=== PATIENT | male | born 1960 | race Caucasian/White ===

== ENCOUNTER 2017-11-12 15:34 | Emergency (ER) | payer BC, OTHER ==
[~2017-11-12] VITALS: Ht 177.8 cm; Wt 67.2 kg
[2017-11-12 15:40] VITALS: BP 161/88
[2017-11-12] MEDS ORDERED: KETOROLAC 30 MG/1 ML IM ONE (16:00)
[2017-11-12] MEDS ORDERED: KETOROLAC 30 MG/1 ML ONE (16:19)
[2017-11-12] MEDS ORDERED: DIAZEPAM 5 MG TABLET PO ONE (17:00)
[2017-11-12] MEDS ORDERED: DIAZEPAM 5 MG TABLET ONE (17:30)
== END 2017-11-12 19:19 | disposition home or self-care (01) ==
LOC: ED 18:55
DX: S06.0X0A Concussion without loss of consciousness, initial encounter (principal); S39.012A Strain of muscle, fascia and tendon of lower back, initial encounter; S16.1XXA Strain of muscle, fascia and tendon at neck level, initial encounter; G89.11 Acute pain due to trauma; V89.2XXA Person injured in unspecified motor-vehicle accident, traffic, initial encounter; Y93.89 Activity, other specified; Y92.410 Unspecified street and highway as the place of occurrence of the external cause; Y99.8 Other external cause status
CPT/HCPCS: 70450; 72072; 72110; 72125; 72128; 73030; 96372; 99284; J1885

== ENCOUNTER 2018-02-19 12:06 | Inpatient (IN) | payer OTHER ==
[~2018-02-19] VITALS: Ht 175.3 cm; Wt 61.0 kg
[2018-02-19 12:56] LABS: BASOPHILS # (AUTO) 0.05 x10^3/uL (0-0.1); BASOPHILS % (AUTO) 1 % (0-1); EOSINOPHILS % (AUTO) 0 % (1-7); LYMPHOCYTES # (AUTO) 0.89 x10^3/uL (1-3.4); LYMPHOCYTES % (AUTO) 14 % (22-44); MD NO; MEAN CORPUSCULAR HEMOGLOBIN 34.5 pg (27.5-34.5); MEAN CORPUSCULAR HGB CONC 34.4 g/dL (33.2-36.2); MEAN CORPUSCULAR VOLUME 100.3 fL (81-97); MEAN PLATELET VOLUME 7.4 fL (7.4-10.4); MONOCYTES # (AUTO) 0.35 x10^3/uL (0.2-0.8); MONOCYTES % (AUTO) 5 % (2-9); NEUTROPHILS % (AUTO) 80 % (42-75); PLATELET COUNT 167 x10^3/uL (130-400); RED BLOOD COUNT 4.39 x10^6/uL (4.38-5.82); RED CELL DISTRIBUTION WIDTH 12.8 % (9.4-14.8)
[2018-02-19] MEDS ORDERED: SODIUM CHLORIDE 0.9% 1,000ML IVBOLUS ONE (13:00)
[2018-02-19] MEDS ORDERED: SODIUM CHLORIDE FLUSH 10ML SYR IVF ONE (13:00)
[2018-02-19 13:06] LABS: ALBUMIN 3.8 g/dL (3.4-5.0); ANION GAP 17 mmol/L (5-15); CALCIUM 7.9 mg/dL (8.5-10.1); CHLORIDE 104 mmol/L (98-107)
[2018-02-19 13:13] LABS: ALANINE AMINOTRANSFERASE 147 U/L (12-78); ALKALINE PHOSPHATASE 93 U/L (45-117); CREATININE 0.82 mg/dL (0.7-1.3); TOTAL PROTEIN 7.3 g/dL (6.4-8.2); TROPONIN I < 0.015 ng/mL (0.000-0.045)
[2018-02-19 13:18] LABS: THYROID STIMULATING HORMONE 0.491 mIU/L (0.358-3.740)
[2018-02-19 13:24] LABS: D-DIMER 2.71 ug/mlFEU (0.00-0.52); INTERNATIONAL NORMALIZED RATIO 0.95 (0.93-1.1); PROTHROMBIN TIME 9.9 Seconds (9.6-11.5)
[2018-02-19] MEDS ORDERED: OMNIPAQUE 350 MG/ML, 100ML BOTTLE ONE (14:04)
[2018-02-19] MEDS ORDERED: ACETAMINOPHEN 650 MG/20.3 ML UDC PO PRN (15:30)
[2018-02-19] MEDS ORDERED: NITROGLYCERIN SINGLE TAB 0.4 MG SL PRN (15:30)
[2018-02-19] MEDS ORDERED: ASPIRIN 325 MG TABLET EC PO ONE (15:30)
[2018-02-19] MEDS ORDERED: LORazepam 2 MG/ML, 1ML IVPush PRN (15:30)
[2018-02-19] MEDS ORDERED: NITROGLYCERIN 0.4 MG/SPRAY SL PRN (15:30)
[2018-02-19] MEDS ORDERED: ONDANSETRON 2MG/ML, 2ML IVP PRN (15:30)
[2018-02-19] MEDS: LIDODERM 5% PATCH TD SCH (15:30)
[2018-02-19] MEDS ORDERED: NITROGLYCERIN 0.4 MG BOTTLE (25 TABS) SL PRN (15:30)
[2018-02-19] MEDS ORDERED: morphine SULFATE 10 MG/ML, 1ML IV PRN (15:30)
[2018-02-19] MEDS ORDERED: ENALAPRILAT 1.25 MG/ML, 2ML IV PRN (15:30)
[2018-02-19] MEDS ORDERED: MAALOX/HYOSCYAMINE/LIDOCAINE 45 ML BTL PO PRN (15:30)
[2018-02-19 15:54] LABS: FOLATE LEVEL 10.8 ng/mL (3.1-17.5)
[2018-02-19] MEDS ORDERED: KETOROLAC 30 MG/1 ML IVPush PRN (16:00)
[2018-02-19 16:07] LABS: HEMOGLOBIN A1C 5.4 % (4.2-6.3)
[2018-02-19 16:47] VITALS: BP 131/75
[2018-02-19] MEDS: LACTATED RINGERS 1,000 ML IV SCH (17:24)
[2018-02-19] MEDS: PANTOPRAZOLE 40 MG IV IVPush SCH (17:40)
[2018-02-19] MEDS: ENOXAPARIN 40 MG/0.4 ML SQ SCH (17:40)
[2018-02-19] MEDS: POTASSIUM CHLORIDE 20 MEQ TAB.ER.PRT PO SCH (17:40)
[2018-02-19] MEDS: METHOCARBAMOL 500 MG TABLET PO SCH ×2 (17:41→20:19)
[2018-02-19 19:35] VITALS: BP 145/79
[2018-02-19 19:40] LABS: TROPONIN I < 0.015 ng/mL (0.000-0.045)
[2018-02-19] MEDS: SODIUM CHLORIDE FLUSH 10ML SYR IVF SCH (20:20)
[2018-02-19 22:52] LABS: MICROSCOPIC NOT IND
[2018-02-19 22:58] LABS: CULTURE INDICATED? NO
[2018-02-20] MEDS: ZOLPIDEM 5MG TABLET PO PRN ×2 (00:35→21:27)
[2018-02-20] MEDS: LACTATED RINGERS 1,000 ML IV SCH ×2 (00:35→07:40)
[2018-02-20 00:36] VITALS: BP 147/72
[2018-02-20 01:21] LABS: CHOL/HDL RATIO 1.9; LDL/HDL RATIO 0.7 (0.5-3.0); TROPONIN I < 0.015 ng/mL (0.000-0.045)
[2018-02-20] MEDS: METHOCARBAMOL 500 MG TABLET PO SCH ×4 (05:50→21:27)
[2018-02-20] MEDS: PANTOPRAZOLE 40 MG IV IVPush SCH ×2 (05:50→18:44)
[2018-02-20] MEDS ORDERED: ASPIRIN 325 MG TABLET EC PO SCH (06:00)
[2018-02-20] MEDS: POTASSIUM CHLORIDE 20 MEQ TAB.ER.PRT PO SCH (07:41)
[2018-02-20] MEDS: SODIUM CHLORIDE FLUSH 10ML SYR IVF SCH ×2 (07:41→21:27)
[2018-02-20] MEDS: TAMSULOSIN 0.4 MG CAP.ER.24H PO SCH (07:41)
[2018-02-20 08:00] VITALS: BP 162/90
[2018-02-20] MEDS ORDERED: LORazepam 1MG TABLET PO PRN ×3 (10:00)
[2018-02-20] MEDS ORDERED: LORazepam 2 MG/ML, 1ML IV PRN ×4 (10:00)
[2018-02-20] MEDS ORDERED: REGADENOSON 0.4 MG/5 ML SYRINGE ONE (10:20)
[2018-02-20 12:11] LABS: MEAN CORPUSCULAR HGB CONC 33.7 g/dL (33.2-36.2); MEAN CORPUSCULAR VOLUME 100.8 fL (81-97); MEAN PLATELET VOLUME 7.3 fL (7.4-10.4); PLATELET COUNT 140 x10^3/uL (130-400); RED BLOOD COUNT 4.13 x10^6/uL (4.38-5.82); RED CELL DISTRIBUTION WIDTH 12.9 % (9.4-14.8)
[2018-02-20 12:18] LABS: ALANINE AMINOTRANSFERASE 106 U/L (12-78); ALBUMIN 3.6 g/dL (3.4-5.0); ANION GAP 11 mmol/L (5-15); CALCIUM 8.2 mg/dL (8.5-10.1); CHLORIDE 97 mmol/L (98-107); CREATININE 0.71 mg/dL (0.7-1.3)
[2018-02-20 12:20] LABS: ALKALINE PHOSPHATASE 88 U/L (45-117); BILIRUBIN,TOTAL 1.9 mg/dL (0.2-1.0); TOTAL PROTEIN 6.8 g/dL (6.4-8.2)
[2018-02-20 12:28] LABS: BASOPHILS % (AUTO) 0 % (0-1); EOSINOPHILS # (AUTO) 0.01 x10^3/uL (0-0.4); EOSINOPHILS % (AUTO) 0 % (1-7); LYMPHOCYTES # (AUTO) 0.42 x10^3/uL (1-3.4); LYMPHOCYTES % (AUTO) 8 % (22-44); MD SCAN; MONOCYTES # (AUTO) 0.44 x10^3/uL (0.2-0.8); MONOCYTES % (AUTO) 9 % (2-9); NEUTROPHILS # (AUTO) 4.25 x10^3/uL (1.8-6.8); NEUTROPHILS % (AUTO) 83 % (42-75)
[2018-02-20] MEDS ORDERED: OMNIPAQUE 350 MG/ML, 100ML BOTTLE ONE (12:46)
[2018-02-20] MEDS: MULTIVIT.W/IRON, MINERALS ORAL SOL PO SCH (13:04)
[2018-02-20] MEDS: THIAMINE 100MG TABLET PO SCH (13:04)
[2018-02-20] MEDS: FOLIC ACID 1 MG TABLET PO SCH (13:05)
[2018-02-20] MEDS ORDERED: MAGNESIUM SULFATE PMX 2GM/50ML 50 ML IV ONE (13:30)
[2018-02-20 13:47] VITALS: BP 126/74
[2018-02-20] MEDS: SODIUM CHLORIDE 0.9% 1,000 ML IV SCH ×2 (14:29→23:50)
[2018-02-20] MEDS: LIDODERM 5% PATCH TD SCH (15:30)
[2018-02-20] MEDS: ENOXAPARIN 40 MG/0.4 ML SQ SCH (16:04)
[2018-02-20 16:45] VITALS: BP 145/82
[2018-02-20 19:07] VITALS: BP 162/88
[2018-02-21 01:39] VITALS: BP 115/74
[2018-02-21] MEDS: METHOCARBAMOL 500 MG TABLET PO SCH ×4 (05:47→20:50)
[2018-02-21] MEDS: PANTOPRAZOLE 40 MG IV IVPush SCH (05:47)
[2018-02-21] MEDS: SODIUM CHLORIDE 0.9% 1,000 ML IV SCH ×2 (08:33→19:42)
[2018-02-21] MEDS: SODIUM CHLORIDE FLUSH 10ML SYR IVF SCH ×2 (08:34→20:51)
[2018-02-21 08:36] VITALS: BP 138/85
[2018-02-21] MEDS: MULTIVIT.W/IRON, MINERALS ORAL SOL PO SCH (08:42)
[2018-02-21] MEDS: THIAMINE 100MG TABLET PO SCH (08:45)
[2018-02-21] MEDS: TAMSULOSIN 0.4 MG CAP.ER.24H PO SCH (08:45)
[2018-02-21] MEDS: FOLIC ACID 1 MG TABLET PO SCH (08:45)
[2018-02-21] MEDS ORDERED: CALCIUM CARBONATE 500 MG/5 ML PO SCH (09:00)
[2018-02-21] MEDS: CALCIUM CARBONATE 500 MG TAB.CHEW PO SCH (10:18)
[2018-02-21] MEDS: LORazepam 0.5MG TABLET PO PRN ×2 (10:18→20:50)
[2018-02-21 12:17] LABS: BASOPHILS # (AUTO) 0.02 x10^3/uL (0-0.1); BASOPHILS % (AUTO) 1 % (0-1); EOSINOPHILS # (AUTO) 0.04 x10^3/uL (0-0.4); EOSINOPHILS % (AUTO) 1 % (1-7); LYMPHOCYTES # (AUTO) 0.59 x10^3/uL (1-3.4); LYMPHOCYTES % (AUTO) 13 % (22-44); MD NO; MEAN CORPUSCULAR HEMOGLOBIN 34.2 pg (27.5-34.5); MEAN CORPUSCULAR HGB CONC 33.9 g/dL (33.2-36.2); MEAN CORPUSCULAR VOLUME 100.8 fL (81-97); MEAN PLATELET VOLUME 7.7 fL (7.4-10.4); MONOCYTES # (AUTO) 0.39 x10^3/uL (0.2-0.8); MONOCYTES % (AUTO) 9 % (2-9); NEUTROPHILS # (AUTO) 3.51 x10^3/uL (1.8-6.8); NEUTROPHILS % (AUTO) 77 % (42-75); PLATELET COUNT 120 x10^3/uL (130-400); RED BLOOD COUNT 4.08 x10^6/uL (4.38-5.82)
[2018-02-21 12:46] LABS: ALBUMIN 3.4 g/dL (3.4-5.0); ANION GAP 7 mmol/L (5-15); CALCIUM 8.2 mg/dL (8.5-10.1); CHLORIDE 102 mmol/L (98-107); CREATININE 0.75 mg/dL (0.7-1.3)
[2018-02-21 12:49] LABS: ALANINE AMINOTRANSFERASE 82 U/L (12-78); ALKALINE PHOSPHATASE 81 U/L (45-117); BILIRUBIN,TOTAL 1.3 mg/dL (0.2-1.0); TOTAL PROTEIN 6.5 g/dL (6.4-8.2)
[2018-02-21 13:07] VITALS: BP 137/84
[2018-02-21] MEDS: PANTOPROZOLE 40MG TABLET PO SCH (14:38)
[2018-02-21] MEDS: SUCRALFATE 1 GM/10 ML UDC PO SCH ×3 (14:38→20:50)
[2018-02-21] MEDS: ENOXAPARIN 40 MG/0.4 ML SQ SCH (16:40)
[2018-02-21] MEDS: LIDODERM 5% PATCH TD SCH (16:41)
[2018-02-21 18:36] VITALS: BP 133/84
[2018-02-21] MEDS: ZOLPIDEM 5MG TABLET PO PRN (21:43)
[2018-02-22 00:15] VITALS: BP 130/90
[2018-02-22] MEDS: PANTOPROZOLE 40MG TABLET PO SCH ×2 (02:28→15:13)
[2018-02-22] MEDS: SODIUM CHLORIDE 0.9% 1,000 ML IV SCH (02:29)
[2018-02-22 05:37] LABS: CHLORIDE 106 mmol/L (98-107)
[2018-02-22] MEDS: METHOCARBAMOL 500 MG TABLET PO SCH (05:43)
[2018-02-22 05:52] LABS: BASOPHILS # (AUTO) 0.02 x10^3/uL (0-0.1); BASOPHILS % (AUTO) 1 % (0-1); EOSINOPHILS # (AUTO) 0.09 x10^3/uL (0-0.4); EOSINOPHILS % (AUTO) 2 % (1-7); LYMPHOCYTES # (AUTO) 0.79 x10^3/uL (1-3.4); LYMPHOCYTES % (AUTO) 20 % (22-44); MD NO; MEAN CORPUSCULAR HEMOGLOBIN 34.1 pg (27.5-34.5); MEAN CORPUSCULAR VOLUME 100.2 fL (81-97); MEAN PLATELET VOLUME 8.1 fL (7.4-10.4); MONOCYTES # (AUTO) 0.45 x10^3/uL (0.2-0.8); MONOCYTES % (AUTO) 11 % (2-9); NEUTROPHILS % (AUTO) 66 % (42-75); PLATELET COUNT 102 x10^3/uL (130-400); RED BLOOD COUNT 3.69 x10^6/uL (4.38-5.82); RED CELL DISTRIBUTION WIDTH 12.4 % (9.4-14.8)
[2018-02-22 05:54] LABS: ALANINE AMINOTRANSFERASE 75 U/L (12-78); ALKALINE PHOSPHATASE 70 U/L (45-117); ANION GAP 7 mmol/L (5-15); BILIRUBIN,TOTAL 1.5 mg/dL (0.2-1.0); CREATININE 0.76 mg/dL (0.7-1.3); TOTAL PROTEIN 5.9 g/dL (6.4-8.2)
[2018-02-22] MEDS: SUCRALFATE 1 GM/10 ML UDC PO SCH ×3 (07:40→16:14)
[2018-02-22 07:46] VITALS: BP 133/82
[2018-02-22] MEDS: SODIUM CHLORIDE FLUSH 10ML SYR IVF SCH (09:00)
[2018-02-22] MEDS: CALCIUM CARBONATE 500 MG TAB.CHEW PO SCH (09:46)
[2018-02-22] MEDS: FOLIC ACID 1 MG TABLET PO SCH (09:46)
[2018-02-22] MEDS: TAMSULOSIN 0.4 MG CAP.ER.24H PO SCH (09:50)
[2018-02-22] MEDS: THIAMINE 100MG TABLET PO SCH (09:50)
[2018-02-22] MEDS: MULTIVIT.W/IRON, MINERALS ORAL SOL PO SCH (10:37)
[2018-02-22] MEDS ORDERED: METHOCARBAMOL 500 MG TABLET PO PRN (11:30)
[2018-02-22 12:23] VITALS: BP 150/85
[2018-02-22] MEDS: ENOXAPARIN 40 MG/0.4 ML SQ SCH (15:14)
[2018-02-22] MEDS: LIDODERM 5% PATCH TD SCH (16:02)
[2018-02-22] MEDS ORDERED: THIA100T6 PO (17:35)
[2018-02-22] MEDS ORDERED: TAMS-11 PO (17:35)
[2018-02-22] MEDS ORDERED: PANT40TA5 PO (17:35)
[2018-02-22] MEDS ORDERED: SUCR1ORA5 PO (17:35)
[2018-02-22] MEDS ORDERED: Multivit.w/Iron, Minerals PO (17:35)
[2018-02-22] MEDS ORDERED: FOLI-17 PO (17:35)
== END 2018-02-22 18:25 | disposition home or self-care (01) | DRG 432 ==
LOC: ED 13:49 → EDIP 14:24 → 5SO 16:04 → 3NE 02-20 16:24
PROVIDERS: ADMIT Internal Medicine; ATTEND Internal Medicine
DX: K70.10 Alcoholic hepatitis without ascites (principal); E43 Unspecified severe protein-calorie malnutrition; E87.1 Hypo-osmolality and hyponatremia; E87.2 Acidosis; K76.6 Portal hypertension; Z68.1 Body mass index [BMI] 19.9 or less, adult; M94.0 Chondrocostal junction syndrome [Tietze]; K21.9 Gastro-esophageal reflux disease without esophagitis; E11.9 Type 2 diabetes mellitus without complications; D75.89 Other specified diseases of blood and blood-forming organs; E83.42 Hypomagnesemia; E83.51 Hypocalcemia; E87.6 Hypokalemia; F41.9 Anxiety disorder, unspecified; G47.00 Insomnia, unspecified; I10 Essential (primary) hypertension; K76.0 Fatty (change of) liver, not elsewhere classified; Z80.0 Family history of malignant neoplasm of digestive organs; Z80.42 Family history of malignant neoplasm of prostate; Z86.010 Personal history of colon polyps; N40.0 Benign prostatic hyperplasia without lower urinary tract symptoms; D53.9 Nutritional anemia, unspecified; Z72.89 Other problems related to lifestyle
CPT/HCPCS: 36415; 70450; 71045; 71275; 74177; 76700; 78452; 80053; 80061; 80074; 81003; 82330; 82607; 82746; 83036; 83690; 83735; 83880; 84100; 84443; 84484; 85025; 85379; 85610; 85730; 87806; 93005; 93017; 93306; 96360; 96361; J1650; J2405; J2785; Q9967; A9502; C9113; C9898; G0475; J2060; J3475; J7030; J7120

== ENCOUNTER 2018-05-17 12:19 | Inpatient (IN) | payer BC, OTHER ==
[~2018-05-17] VITALS: Ht 177.8 cm; Wt 64.6 kg
[~2018-05-17 12:19] MED LIST: FOLI-17 PO; Multivit.w/Iron, Minerals PO; PANT40TA5 PO; SUCR1ORA5 PO; TAMS-11 PO; THIA100T67 PO
[2018-05-17] MEDS ORDERED: POTASSIUM CHLORIDE 40 MEQ in SODIUM CHLORIDE 0.9% 500 ML IV ONE (12:30)
[2018-05-17] MEDS ORDERED: THIAMINE 100MG TABLET PO ONE (12:30)
[2018-05-17] MEDS ORDERED: POTASSIUM CHLORIDE 20 MEQ TAB.ER.PRT PO ONE (12:30)
[2018-05-17] MEDS ORDERED: SODIUM CHLORIDE FLUSH 10ML SYR IVF ONE (12:30)
[2018-05-17] MEDS ORDERED: THIAMINE 100MG TABLET ONE (12:46)
[2018-05-17] MEDS ORDERED: LORazepam 2 MG/ML, 1ML ONE ×2 (12:47→14:04)
[2018-05-17] MEDS ORDERED: NS + 40MEQ KCL 1,000 ML IV ONE (12:47)
[2018-05-17] MEDS ORDERED: POTASSIUM CHLORIDE 20 MEQ TAB.ER.PRT ONE (12:47)
[2018-05-17] MEDS: LORazepam 2 MG/ML, 1ML IVPush PRN ×3 (12:52→14:10)
[2018-05-17 13:01] LABS: ALANINE AMINOTRANSFERASE 98 U/L (12-78); ALBUMIN 3.4 g/dL (3.4-5.0); ANION GAP 8 mmol/L (5-15); CHLORIDE 105 mmol/L (98-107); CREATININE 0.74 mg/dL (0.7-1.3)
[2018-05-17 13:03] LABS: ALKALINE PHOSPHATASE 100 U/L (45-117); BILIRUBIN,TOTAL 0.9 mg/dL (0.2-1.0); TOTAL PROTEIN 6.9 g/dL (6.4-8.2)
[2018-05-17 13:12] LABS: BASOPHILS # (AUTO) 0.02 x10^3/uL (0-0.1); BASOPHILS % (AUTO) 0 % (0-1); EOSINOPHILS # (AUTO) 0.05 x10^3/uL (0-0.4); EOSINOPHILS % (AUTO) 1 % (1-7); LYMPHOCYTES # (AUTO) 0.72 x10^3/uL (1-3.4); LYMPHOCYTES % (AUTO) 14 % (22-44); MD NO; MEAN CORPUSCULAR HEMOGLOBIN 34.8 pg (27.5-34.5); MEAN CORPUSCULAR HGB CONC 34.3 g/dL (33.2-36.2); MEAN CORPUSCULAR VOLUME 101.5 fL (81-97); MEAN PLATELET VOLUME 8.5 fL (7.4-10.4); MONOCYTES # (AUTO) 0.49 x10^3/uL (0.2-0.8); MONOCYTES % (AUTO) 10 % (2-9); NEUTROPHILS % (AUTO) 75 % (42-75); PLATELET COUNT 119 x10^3/uL (130-400); RED BLOOD COUNT 3.59 x10^6/uL (4.38-5.82); RED CELL DISTRIBUTION WIDTH 12.9 % (9.4-14.8)
[2018-05-17] MEDS ORDERED: D5 IV SCH (14:45)
[2018-05-17] MEDS ORDERED: FOLIC ACID IV SCH (14:45)
[2018-05-17] MEDS ORDERED: MVI ADULT IV SCH (14:45)
[2018-05-17] MEDS ORDERED: NACL IV SCH (14:45)
[2018-05-17] MEDS ORDERED: POTASSIUM CHLORIDE IV SCH (14:45)
[2018-05-17] MEDS ORDERED: CHLORDIAZEPOXIDE 25 MG CAPSULE PO ONE (15:00)
[2018-05-17] MEDS ORDERED: LORazepam 1MG TABLET PO PRN ×4 (15:00)
[2018-05-17] MEDS ORDERED: KETOROLAC 30 MG/1 ML IV PRN (15:00)
[2018-05-17] MEDS ORDERED: LABETALOL 5MG/ML, 20ML IVPush PRN (15:00)
[2018-05-17] MEDS ORDERED: CHLORDIAZEPOXIDE 25 MG CAPSULE PO SCH (15:00)
[2018-05-17] MEDS ORDERED: FOLIC ACID 5 MG/ML IM ONE (15:00)
[2018-05-17] MEDS ORDERED: LORazepam 2 MG/ML, 1ML IV PRN ×5 (15:00)
[2018-05-17] MEDS ORDERED: LORazepam 0.5MG TABLET PO PRN (15:00)
[2018-05-17] MEDS ORDERED: ACETAMINOPHEN 325 MG TABLET PO PRN (15:00)
[2018-05-17] MEDS ORDERED: THIAMINE 200 MG in DEXTROSE 5% 50 ML IVPB ONE (15:00)
[2018-05-17] MEDS ORDERED: BACLOFEN 10 MG TABLET PO PRN (15:00)
[2018-05-17 15:38] VITALS: BP 125/87
[2018-05-17] MEDS: ENOXAPARIN 40 MG/0.4 ML SQ SCH (15:54)
[2018-05-17] MEDS ORDERED: SODIUM CHLORIDE 0.9% IVPB ONE ×2 (17:00→17:31)
[2018-05-17] MEDS ORDERED: PHARMACY INSTRUCTION MC PRN ×4 (17:00)
[2018-05-17] MEDS ORDERED: PHENOBARBITAL SODIUM IVPB ONE ×2 (17:00→17:31)
[2018-05-17] MEDS ORDERED: PHENOBARBITAL SODIUM 130 MG/ML, 1ML IM ONE (18:00)
[2018-05-17 22:25] LABS: CULTURE INDICATED? YES; MICROSCOPIC INDICATED
[2018-05-17] MEDS ORDERED: SODIUM CHLORIDE 0.9% IV ONE (22:30)
[2018-05-17] MEDS ORDERED: PHENOBARBITAL SODIUM IV ONE (22:30)
[2018-05-17 22:35] LABS: AMPHETAMINE SCREEN, URINE Negative (Negative); BARBITURATE SCREEN, URINE Positive (Negative); BENZODIAZEPINE SCREEN, URINE Negative (Negative); CANNABINOID SCREEN, URINE Positive (Negative); COCAINE SCREEN, URINE Negative (Negative); METHADONE SCREEN, URINE Negative (Negative); OPIATE SCREEN, URINE Negative (Negative)
[2018-05-18 04:00] VITALS: BP 120/91
[2018-05-18 04:29] LABS: INTERNATIONAL NORMALIZED RATIO 0.97 (0.93-1.1)
[2018-05-18 04:33] LABS: ALBUMIN 3.3 g/dL (3.4-5.0); CALCIUM 8.6 mg/dL (8.5-10.1); CHLORIDE 106 mmol/L (98-107); CREATININE 0.65 mg/dL (0.7-1.3)
[2018-05-18 04:40] LABS: ALANINE AMINOTRANSFERASE 100 U/L (12-78); ALKALINE PHOSPHATASE 103 U/L (45-117); ANION GAP 8 mmol/L (5-15); BILIRUBIN,TOTAL 1.1 mg/dL (0.2-1.0); TOTAL PROTEIN 6.9 g/dL (6.4-8.2)
[2018-05-18 04:47] LABS: BASOPHILS # (AUTO) 0.05 x10^3/uL (0-0.1); BASOPHILS % (AUTO) 1 % (0-1); EOSINOPHILS # (AUTO) 0.13 x10^3/uL (0-0.4); EOSINOPHILS % (AUTO) 2 % (1-7); LYMPHOCYTES % (AUTO) 13 % (22-44); MD SCAN; MEAN CORPUSCULAR HEMOGLOBIN 34.8 pg (27.5-34.5); MEAN CORPUSCULAR HGB CONC 34.1 g/dL (33.2-36.2); MEAN CORPUSCULAR VOLUME 102.3 fL (81-97); MONOCYTES # (AUTO) 0.51 x10^3/uL (0.2-0.8); MONOCYTES % (AUTO) 9 % (2-9); NEUTROPHILS # (AUTO) 4.52 x10^3/uL (1.8-6.8); NEUTROPHILS % (AUTO) 75 % (42-75); PLATELET COUNT 134 x10^3/uL (130-400); RED BLOOD COUNT 3.97 x10^6/uL (4.38-5.82); RED CELL DISTRIBUTION WIDTH 12.8 % (9.4-14.8)
[2018-05-18] MEDS: PHENOBARBITAL SODIUM 65 MG/ML, 1ML IM SCH ×2 (08:23→20:33)
[2018-05-18] MEDS: TAMSULOSIN 0.4 MG CAP.ER.24H PO SCH (08:23)
[2018-05-18] MEDS: MULTIVITAMINS/MINERALS TABLET PO SCH (08:23)
[2018-05-18] MEDS ORDERED: PHENOBARBITAL SODIUM 65 MG/ML, 1ML IV SCH (08:30)
[2018-05-18 12:18] LABS: CLOSTRIDIUM DIFFICILE ANTIGEN NEGATIVE; CLOSTRIDIUM DIFFICILE TOXIN NEGATIVE (Negative)
[2018-05-18] MEDS: ENOXAPARIN 40 MG/0.4 ML SQ SCH (14:52)
[2018-05-18] MEDS ORDERED: POTASSIUM CHLORIDE IV SCH (18:00)
[2018-05-18] MEDS ORDERED: FOLIC ACID IV SCH (18:00)
[2018-05-18] MEDS ORDERED: NACL IV SCH (18:00)
[2018-05-18] MEDS ORDERED: D5 IV SCH (18:00)
[2018-05-18] MEDS ORDERED: MVI ADULT IV SCH (18:00)
[2018-05-19 07:49] LABS: ALBUMIN 3.4 g/dL (3.4-5.0); ANION GAP 12 mmol/L (5-15); CALCIUM 8.7 mg/dL (8.5-10.1); CHLORIDE 107 mmol/L (98-107)
[2018-05-19 07:52] LABS: ALANINE AMINOTRANSFERASE 109 U/L (12-78); ALKALINE PHOSPHATASE 135 U/L (45-117); BILIRUBIN,TOTAL 0.8 mg/dL (0.2-1.0); TOTAL PROTEIN 7.6 g/dL (6.4-8.2)
[2018-05-19 07:54] LABS: BASOPHILS % (AUTO) 0 % (0-1); EOSINOPHILS # (AUTO) 0.16 x10^3/uL (0-0.4); EOSINOPHILS % (AUTO) 3 % (1-7); LYMPHOCYTES # (AUTO) 0.47 x10^3/uL (1-3.4); LYMPHOCYTES % (AUTO) 8 % (22-44); MD NO; MEAN CORPUSCULAR HEMOGLOBIN 34.7 pg (27.5-34.5); MEAN CORPUSCULAR HGB CONC 34.4 g/dL (33.2-36.2); MEAN CORPUSCULAR VOLUME 100.8 fL (81-97); MEAN PLATELET VOLUME 7.8 fL (7.4-10.4); MONOCYTES # (AUTO) 0.46 x10^3/uL (0.2-0.8); MONOCYTES % (AUTO) 8 % (2-9); NEUTROPHILS # (AUTO) 4.63 x10^3/uL (1.8-6.8); NEUTROPHILS % (AUTO) 81 % (42-75); PLATELET COUNT 153 x10^3/uL (130-400); RED BLOOD COUNT 4.55 x10^6/uL (4.38-5.82); RED CELL DISTRIBUTION WIDTH 12.8 % (9.4-14.8)
[2018-05-19] MEDS: TAMSULOSIN 0.4 MG CAP.ER.24H PO SCH (08:30)
[2018-05-19] MEDS: PHENOBARBITAL SODIUM 65 MG/ML, 1ML IM SCH ×2 (08:30→20:25)
[2018-05-19] MEDS ORDERED: MAGNESIUM SULFATE PMX 2GM/50ML 50 ML IV ONE (08:30)
[2018-05-19] MEDS: MULTIVITAMINS/MINERALS TABLET PO SCH (08:30)
[2018-05-19] MEDS: ENOXAPARIN 40 MG/0.4 ML SQ SCH (09:30)
[2018-05-19 19:45] VITALS: BP 120/79
[2018-05-20 03:14] VITALS: BP 104/74
[2018-05-20 05:33] LABS: ALBUMIN 3.2 g/dL (3.4-5.0); CALCIUM 8.1 mg/dL (8.5-10.1); CHLORIDE 104 mmol/L (98-107)
[2018-05-20 05:42] LABS: ALANINE AMINOTRANSFERASE 94 U/L (12-78); ANION GAP 7 mmol/L (5-15); BILIRUBIN,TOTAL 0.5 mg/dL (0.2-1.0); CREATININE 0.74 mg/dL (0.7-1.3)
[2018-05-20 05:43] LABS: ALKALINE PHOSPHATASE 123 U/L (45-117); TOTAL PROTEIN 7.1 g/dL (6.4-8.2)
[2018-05-20 07:12] VITALS: BP 104/72
[2018-05-20] MEDS: PHENOBARBITAL SODIUM 65 MG/ML, 1ML IM SCH ×2 (09:47→20:09)
[2018-05-20] MEDS: MULTIVITAMINS/MINERALS TABLET PO SCH (09:55)
[2018-05-20] MEDS: TAMSULOSIN 0.4 MG CAP.ER.24H PO SCH (09:55)
[2018-05-20] MEDS: ENOXAPARIN 40 MG/0.4 ML SQ SCH (09:58)
[2018-05-20] MEDS ORDERED: ONDANSETRON 2MG/ML, 2ML IVPush PRN (11:30)
[2018-05-20 13:53] VITALS: BP 104/73
[2018-05-20] MEDS: LOPERAMIDE 2 MG CAPSULE PO PRN ×2 (17:33→20:09)
[2018-05-20 19:30] VITALS: BP 99/67
[2018-05-20] MEDS ORDERED: MELATONIN 3 MG TABLET PO SCH (21:00)
[2018-05-21 01:38] VITALS: BP 98/65
[2018-05-21 07:08] VITALS: BP 95/63
[2018-05-21] MEDS ORDERED: SERTRALINE 50MG TABLET PO SCH (09:00)
[2018-05-21] MEDS: MULTIVITAMINS/MINERALS TABLET PO SCH (09:00)
[2018-05-21] MEDS: PHENOBARBITAL SODIUM 65 MG/ML, 1ML IM SCH (09:40)
[2018-05-21] MEDS: TAMSULOSIN 0.4 MG CAP.ER.24H PO SCH (09:41)
[2018-05-21] MEDS ORDERED: SERT50TA5 PO (11:55)
[2018-05-21 12:50] VITALS: BP 105/69
[2018-05-22] MEDS ORDERED: PHENOBARBITAL 20 MG/5 ML ORAL SOL PO SCH (08:30)
[2018-05-23] MEDS ORDERED: PHENOBARBITAL 20 MG/5 ML ORAL SOL PO SCH (08:30)
== END 2018-05-21 14:45 | disposition home or self-care (01) | DRG 432 ==
LOC: EDBD 12:19 → ED 12:56 → EDIP 14:12 → 4WST 15:08 → CCU 17:16 → 3NE 05-19 16:48
PROVIDERS: ADMIT Internal Medicine; ATTEND Family Medicine
DX: K70.10 Alcoholic hepatitis without ascites (principal); G92 Toxic encephalopathy; F10.19 Alcohol abuse with unspecified alcohol-induced disorder; D53.9 Nutritional anemia, unspecified; E87.6 Hypokalemia; F12.90 Cannabis use, unspecified, uncomplicated; F32.9 Major depressive disorder, single episode, unspecified; Y90.9 Presence of alcohol in blood, level not specified; G31.2 Degeneration of nervous system due to alcohol; I10 Essential (primary) hypertension; Y90.0 Blood alcohol level of less than 20 mg/100 ml; K76.0 Fatty (change of) liver, not elsewhere classified; Z80.42 Family history of malignant neoplasm of prostate; Z56.0 Unemployment, unspecified; Z71.51 Drug abuse counseling and surveillance of drug abuser
CPT/HCPCS: 36415; 99291; J7042; 80053; 80307; 81001; 82140; 82607; 83735; 84100; 85025; 85610; 87081; 87086; 87324; 93005; 96374; 96376; G0378; J1650; J2560; J3411; J3480; J2060; J3475; J7040

== ENCOUNTER 2019-01-15 07:39 | Emergency (ER) | payer BC, MEDICAID ==
[~2019-01-15] VITALS: Ht 177.8 cm; Wt 67.4 kg
[~2019-01-15 07:39] MED LIST changes: +SERT50TA28 PO
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
[2019-01-15] MEDS ORDERED: HYDROcodone/APAP 5/325 TABLET ONE (08:21)
[2019-01-15] MEDS ORDERED: HYDROcodone/APAP 5/325 TABLET PO ONE (08:30)
[2019-01-15 09:44] VITALS: BP 110/68
--- NOTE | 2019-01-15 09:48 | NUR ---
Patient/Caregiver given discharge instructions and they have confirmed that they understand the instructions. Patient ambulatory with [facility]PR[facility] GAIT.
== END 2019-01-15 09:49 | disposition home or self-care (01) ==
LOC: ED 09:43
DX: G89.11 Acute pain due to trauma (principal); M79.671 Pain in right foot; I10 Essential (primary) hypertension; W23.0XXA Caught, crushed, jammed, or pinched between moving objects, initial encounter; Y93.89 Activity, other specified; Y92.009 Unspecified place in unspecified non-institutional (private) residence as the place of occurrence of the external cause; Y99.8 Other external cause status
CPT/HCPCS: 99283